=== PATIENT | male | born 1985 | race Caucasian/White ===

== ENCOUNTER 2020-10-05 18:53 | Emergency (ER) | payer SELFPAY ==
--- NOTE | 2020-10-05 19:52 | EDM.PDOC ---
ED HPI GENERAL MEDICAL PROBLEM - General Chief Complaint: Upper Extremity Injury/Pain Stated Complaint: RIGHT HAND, POINTER FINGER POSSIBLY BROKEN PER PT Time Seen by Provider: 10/05/20 19:30 Source of Information: Reports: Patient, RN, RN Notes Reviewed History Limitations: Reports: No Limitations - History of Present Illness INITIAL COMMENTS - FREE TEXT/NARRATIVE: Patient presents to the ED via personal vehicle for complaints of pain to right second digit. The patient reports he injured the digit about 30 minutes prior to arrival to this facility while unplugging a cord on his motor vehicle. He states he struck the finger against a piece of metal and is concerned it is fractured. He denies loss of motor or sensory function to the digit. He has not taken any analgesics prior to arrival. - Related Data Allergies Allergy/AdvReac Type Severity Reaction Status Date / Time No Known Allergies Allergy Verified 10/05/20 19:02 Home Meds: Home Meds . [No Known Home Meds] 10/05/20 [History] Past Medical History Genitourinary History: Reports: Renal Calculus - Infectious Disease History Infectious Disease History: Reports: Novel Coronavirus - Past Surgical History Musculoskeletal Surgical History: Reports: Other (See Below) Other Musculoskeletal Surgeries/Procedures:: right knee surgery Social & Family History - Tobacco Use Tobacco Use Status *Q: Current Every Day Tobacco User Years of Tobacco use: 10 Packs/Tins Daily: 0.1 Second Hand Smoke Exposure: Yes - Recreational Drug Use Recreational Drug Use: No Review of Systems - Review of Systems Review Of Systems: Comprehensive ROS is negative, except as noted in HPI. ED EXAM, GENERAL - Physical Exam Exam: See Below Exam Limited By: No Limitations General Appearance: Alert, No Apparent Distress Throat/Mouth: Normal Inspection, Normal Voice, No Airway Compromise Head: Atraumatic, Normocephalic Respiratory/Chest: No Respiratory Distress, Lungs Clear, Normal Breath Sounds, No Accessory Muscle Use, Chest Non-Tender Cardiovascular: Normal Peripheral Pulses, Regular Rate, Rhythm, No Edema, No Gallop, No JVD, No Murmur, No Rub Peripheral Pulses: 2+: Radial (L), Radial (R) Extremities: Normal Range of Motion, Normal Capillary Refill, Joint Swelling (To the MIP joint of the right, second digit), Arm Pain (Pain to right, second digit), Increased Warmth (Right, second digit). No: Redness Neurological: Alert, Oriented, CN II-XII Intact, Normal Cognition, Normal Gait, No Motor/Sensory Deficits Psychiatric: Normal Affect, Normal Mood Skin Exam: Warm, Dry, Intact, Ecchymosis (To right, second digit). No: Erythema, Mottled, Pallor, Petechiae Course - Vital Signs Last Recorded V/S: Last Vital Signs Temp 97.9 F 10/05/20 18:58 Pulse 94 10/05/20 18:58 Resp 18 10/05/20 18:58 BP 120/89 10/05/20 18:58 Pulse Ox 97 10/05/20 18:58 - Radiology Interpretation Free Text/Narrative:: [facility] Final Radiology Report Call: [phone] assistance Online chat: [email or web address] Name: DUSTIN ANDERS Age: 35Years M Date: 10/05/2020 SSN: -- : [id number] Study: CR HAND COMP MIN 3V RT Requesting Physician: Aracelis Mix Images: 3 Addl Studies: Provided Clinical History: Deformity to second digit Contrast: Contrast Medium: Contrast Amount: Contrast Method: CONFIDENTIALITY STATEMENT This report is intended only for use by the referring physician, and only in accordance with law. If you received this in error, call [phone]. Page 1 of 1 PROCEDURE INFORMATION: Exam: XR Right Hand Exam date and time: 10/05/2020 7:29 PM Age: 35 years old Clinical indication: Other: Pain; Additional info: Deformity to second digit TECHNIQUE: Imaging protocol: XR Right hand. Views: 3 or more views. COMPARISON: No relevant prior studies available. FINDINGS: Bones/joints: There is normal osseous mineralization. There are no suspicious lytic or osteosclerotic lesions. Normal alignment. No fracture deformity. No dislocation. No callus formation. No periarticular osteophytes or erosions. No loose bodies. Soft tissues: No soft tissue calcifications, gas or foreign body. IMPRESSION: Normal hand radiography. Thank you for allowing us to participate in the care of your patient. Dictated and Authenticated by: Jose Luis Manrique MD 10/05/2020 7:57 PM Central Time ([place] & [place]) - Re-Assessments/Exams Free Text/Narrative Re-Assessment/Exam: 10/05/20 Xray of right hand/digits negative for acute processes; no evidence of fracture or dislocation. Findings of examination and imaging reviewed with patient and . Discussed supportive cares, as well as signs and symptoms which would warrant reevaluation. Patient and verbalized understanding and agreement with the plan of care. Departure - Departure Time of Disposition: 20:01 Disposition: Home, Self-Care 01 Condition: Good Clinical Impression: Injury of right index finger Qualifiers: Encounter type: initial encounter Qualified Code(s): S69.91XA - Unspecified injury of right wrist, hand and finger(s), initial encounter - Discharge Information *PRESCRIPTION DRUG MONITORING PROGRAM REVIEWED*: Not Applicable *COPY OF PRESCRIPTION DRUG MONITORING REPORT IN PATIENT SUZE: Not Applicable Instructions: Pain Medicine Instructions, [id number] Forms: ED Department Discharge Additional Instructions: 1.) You may take acetaminophen (Tylenol) 650mg every six hours as pain persists. You may also take ibuprofen (Motrin/Advil) 400mg every six hours as pain and swelling persist. You may stagger these medications so you are taking a dose every three hours. 2.) You may apply ice to the affected area, as pain and swelling persist. 3.) Follow up with your primary care provider for reevaluation in 5-7 days should pain persist, or worsen. Sepsis Event Note (ED) - Evaluation Sepsis Screening Result: No Definite Risk - Focused Exam Vital Signs: Vital Signs Temp Pulse Resp BP Pulse Ox 10/05/20 18:58 97.9 F 94 18 120/89 97
--- NOTE | 2020-10-05 19:58 | CR ---
PROCEDURE INFORMATION: Exam: XR Right Hand Exam date and time: 10/05/2020 7:29 PM Age: 35 years old Clinical indication: Other: Pain; Additional info: Deformity to second digit TECHNIQUE: Imaging protocol: XR Right hand. Views: 3 or more views. COMPARISON: No relevant prior studies available. FINDINGS: Bones/joints: There is normal osseous mineralization. There are no suspicious lytic or osteosclerotic lesions. Normal alignment. No fracture deformity. No dislocation. No callus formation. No periarticular osteophytes or erosions. No loose bodies. Soft tissues: No soft tissue calcifications, gas or foreign body. IMPRESSION: Normal hand radiography.
== END 2020-10-05 20:15 | disposition home or self-care (01) ==
LOC: DL.ED 18:53
DX: S60.021A Contusion of right index finger without damage to nail, initial encounter (principal); Z72.0 Tobacco use; W22.8XXA Striking against or struck by other objects, initial encounter
CPT/HCPCS: 73130-RT; 99282; 99283